=== PATIENT | male | born 1975 | race Caucasian/White ===

== ENCOUNTER 2017-06-04 03:51 | Emergency (ER) | payer SELFPAY ==
[2017-06-04 04:12] VITALS: BMI 30.4
--- NOTE | 2017-06-04 04:26 | PDOC ---
History of Present Illness <Palm,Luz - Last Filed: 06/04/17 05:50> - General History Source: Patient, Friend Exam Limitations: Intoxication - History of Present Illness Initial Comments: 06/04/17 04:15 This is a 42 yo male with unremarkable PMH who presents with closed head injury sustained early this morning at approximately 3 am. The patient reportedly consumed the equivalent of about 10-12 shots of alcohol, tripped on a sidewalk, and fell backwards from standing, landing on the back of his head. The patient himself cannot remember this happening and does not know whether or not he lost consciousness. His friend (who did not personally witness the event) states that the patient was reportedly acting "delirious" after the fall, per his friends who actually witnessed this. <BrandinGalilea - Last Filed: 06/04/17 07:01> - General Chief Complaint: Wound Stated Complaint: FALL -INJURY TO BACK OF HEAD Time Seen by Provider: 06/04/17 04:00 Past History <Luz Palm - Last Filed: 06/04/17 05:50> - Psycho/Social/Smoking Cessation Hx Suicidal Ideation: No Smoking History: Unknown if ever smoked Information on smoking cessation initiated: No Hx Alcohol Use: No Drug/Substance Use Hx: No <Ghotra,Galilea - Last Filed: 06/04/17 07:01> - Past Medical History Allergies/Adverse Reactions: Allergies Allergy/AdvReac Type Severity Reaction Status Date / Time No Known Allergies Allergy Verified 06/04/17 04:02 Home Medications: Ambulatory Orders NK [No Known Home Medication] 06/04/17 Review of Systems - Review of Systems Able to Perform ROS?: Yes Is the patient limited Maori proficient: Yes Constitutional: No: Chills, Fever, Unexplained wgt Loss HEENTM: Yes: Other (scalp abrasion and bruising). No: Blurred Vision, Recent change in vision, Double Vision, Ear Pain, Nose Bleeding Respiratory: No: Cough, Shortness of Breath Cardiac (ROS): No: Chest Pain, Palpitations ABD/GI: No: Constipated, Diarrhea, Nausea, Vomiting : No: Burning, Dysuria Musculoskeletal: No: Back Pain, Neck Pain Integumentary: No: Bruising, Rash Neurological: No: Numbness, Tingling, Weakness, Dizziness Endocrine: No: Unexplained Weight Gain, Unexplained Weight Loss <Galilea Ghotra - Last Filed: 06/04/17 07:01> *Physical Exam - Vital Signs Last Vital Signs Temp Pulse Resp BP Pulse Ox 98.5 F 74 16 118/84 95 06/04/17 04:02 06/04/17 04:02 06/04/17 04:02 06/04/17 04:02 06/04/17 04:02 <Luz Palm - Last Filed: 06/04/17 05:50> - Vital Signs Last Vital Signs Temp Pulse Resp BP Pulse Ox 98.5 F 74 16 118/84 95 06/04/17 04:02 06/04/17 04:02 06/04/17 04:02 06/04/17 04:02 06/04/17 04:02 - Physical Exam General Appearance: Yes: Nourished, Appropriately Dressed, Alcohol on Breath, Intoxicated, Other (alert and oriented but appears tired, follows commands). No : Apparent Distress HEENT: positive: EOMI, CANDICE, Normal ENT Inspection, Normal Voice, Hearing Grossly Normal, Other (4x3 cm scalp hematoma just inferolateral to occipital protuberance with overlying 3x3cm abrasion, no mastoid tenderness to percussion , no dawn sign, no raccoon eyes). negative: Scleral Icterus (R), Scleral Icterus (L), Nasal Congestion Neck: positive: Trachea midline, Supple. negative: Tender, Rigid Respiratory/Chest: positive: Lungs Clear, Normal Breath Sounds. negative: Respiratory Distress, Crackles, Rhonchi, Stridor, Wheezing Cardiovascular: positive: Regular Rhythm, Regular Rate. negative: Murmur Gastrointestinal/Abdominal: positive: Normal Bowel Sounds, Soft. negative: Tender, Organomegaly, Pulsatile Mass, Guarding Musculoskeletal: positive: Normal Inspection. negative: Decreased Range of Motion, Vertebral Tenderness Extremity: positive: Normal Capillary Refill, Normal Inspection, Normal Range of Motion. negative: Tender, Cyanosis Integumentary: positive: Normal Color, Dry, Warm. negative: Erythema, Rash, Bruising Neurologic: positive: psychiatric nurse II-XII NML intact, Fully Oriented, Alert, Normal Mood/ Affect, Normal Response, Motor Strength 5/5, Finger to Nose (normal), Confused ( mild) <Galilea Ghotra - Last Filed: 06/04/17 07:01> ED Treatment Course - LABORATORY CBC & Chemistry Diagram: 06/04/17 04:20 06/04/17 04:20 - ADDITIONAL ORDERS Additional order review: Laboratory Results 06/04/17 06/04/17 06/04/17 04:20 04:20 04:20 INR 0.90 PTT (Actin FS) Sodium 139 Potassium 3.4 L Chloride 101 Carbon Dioxide 28 Anion Gap 10 BUN 18 Creatinine 1.1 Creat Clearance w eGFR > 60 Random Glucose 101 Calcium 8.8 Total Bilirubin 0.4 AST 29 ALT 30 Alkaline Phosphatase 60 Total Protein 7.1 Albumin 4.2 Alcohol, Quantitative 166.2 H* 06/04/17 04:20 INR PTT (Actin FS) 29.3 Sodium Potassium Chloride Carbon Dioxide Anion Gap BUN Creatinine Creat Clearance w eGFR Random Glucose Calcium Total Bilirubin AST ALT Alkaline Phosphatase Total Protein Albumin Alcohol, Quantitative 06/04/17 04:20 RBC 4.31 MCV 91.6 MCHC 33.6 RDW 13.3 MPV 8.1 Neutrophils % 63.9 Lymphocytes % 24.6 Monocytes % 9.4 Eosinophils % 1.6 Basophils % 0.5 - RADIOLOGY Radiology Studies Ordered: Category Date Time Status CERVICAL SPINE CT W/O CONTR [CT] Stat CT Scan 06/04/17 04:[address] WITHOUT CONTRAST [CT] Stat CT Scan 06/04/17 04:08 Ordered CHEST X-RAY PORTABLE* [RAD] Stat Radiology 06/04/17 05:26 Ordered <Luz Palm - Last Filed: 06/04/17 05:50> - LABORATORY CBC & Chemistry Diagram: 06/04/17 04:20 06/04/17 04:20 - RADIOLOGY Radiology Studies Ordered: 06/04/17 06:39 CT Cervical Spine WO Contrast: Suspected occult skull fracture involving the left temporal bone. Interpreted by Dr. Louis. CT Head WO Contrast: Suspected nondepressed skull fracture is suggested by intracranial air in the left posterior fossa. Minimal left mastoid effusion suggests a fracture involving the temporal bone. No intracranial hemorrhage. Interpreted by Dr. Louis. <Galilea Ghotra - Last Filed: 06/04/17 07:01> Medical Decision Making - Medical Decision Making 06/04/17 06:43 42 yo male presents after GLF onto the back of his head (onto concrete) in the setting of alcohol intoxication. Head/C spine CT ordered d/t patient's alcohol intoxication, inability to remember the event, and inability to say whether or not he lost consciousness. CT findings consistent with nondepressed skull fracture involving the temporal bone, no ICH. The patient is given IV ceftriaxone, and transferred to [facility] for neurosurgical services. <Galilea Ghotra - Last Filed: 06/04/17 07:01> *DC/Admit/Observation/Transfer - Transfer to Acute Care Facility Receiving Facility: [facility] <Luz Palm - Last Filed: 06/04/17 05:50> - Transfer to Acute Care Facility Receiving Facility: [facility] Accepting Physician:: Dr. Barrios - Attestations Physician Attestion: 06/04/17 06:58 I, Dr. Galilea Ghotra, attest that this document has been prepared under my direction and personally reviewed by me in its entirety. I further attest, that it accurately reflects all work, treatment, procedures and medical decision -making performed by me. <Galilea Ghotra - Last Filed: 06/04/17 07:01> Diagnosis at time of Disposition: Skull fracture Qualifiers: Encounter type: initial encounter Skull bone/location: other skull bone Fracture type: closed Laterality: left Qualified Code(s): S02.82XA - Fracture of other specified skull and facial bones, left side, initial encounter for closed fracture - Discharge Dispostion Disposition: TRANSFER ACUTE CARE/OTHER HOSP Condition at time of disposition: Guarded
[2017-06-04 04:32] LABS: BASOPHIL 0.5 % (0-2.0); EOSINOPHIL 1.6 % (0-4.5); MCH 30.8 pg (25.7-33.7); MCHC 33.6 g/dl (32.0-35.9); MEAN CELL VOLUME 91.6 fl (80-96); MEAN PLT VOLUME 8.1 fl (7.5-11.1); NEUTROPHILS 63.9 % (42.8-82.8); PLATELET COUNT 178 K/MM3 (134-434); RDW 13.3 % (11.9-15.9); WHITE BLOOD COUNT 6.7 K/mm3 (4.0-10.0)
[2017-06-04 04:45] LABS: INR 0.9 (0.82-1.09); PROTHROMBIN TIME (PATIENT) 9.9 SEC (9.98-11.88)
[2017-06-04 05:06] LABS: ALBUMIN 4.2 g/dl (3.4-5.0); ALK PHOS 60 U/L (45-117); ANION GAP 10 (8-16); BILIRUBIN,TOTAL 0.4 mg/dL (0.2-1.0); CALCIUM 8.8 mg/dL (8.5-10.1); CO2 28 mmol/L (21-32); CREATININE 1.1 mg/dL (0.7-1.3); GLUCOSE,RANDOM 101 mg/dL (74-106); SGOT/AST 29 U/L (15-37); SGPT/ALT 30 U/L (12-78); TOT PROT 7.1 g/dl (6.4-8.2)
[2017-06-04 06:22] VITALS: BP 111/60; PULSE 79; TEMP 98
[2017-06-04] MEDS ORDERED: CEFTRIAXONE 1 GM in DEXTROSE 5%-WATER - 50 ML IVPB ONE (06:29)
--- NOTE | 2017-06-04 06:29 | PDOC ---
Attending Attestation - Resident Resident Name: Galilea Ghotra - HPI HPI: 06/04/17 06:23 pt fell onto sidewalk wasted with alcohol intox. Unknown if any drug consumption , though people at the same [facility] were abusing GHB and Mollys (they are at our ER also) Pt has no recollection of how he fell. - Physicial Exam PE: 06/04/17 06:25 Drunk. Alcohol on breath. Pt is arousable and alert. Pt HEENT reveals Some blood and bulging behind the left ear. CT shows skull fracture at the occiput and at the left temporal area. Pt has no c spine fracture, as per radiology reading Patient Name: Wilmar Benítez THIS IS A PRELIMINARYREPORT FROM [facility] EXAM: CT brain without contrast IMAGES: [id number] INDICATION: Status post fall DATE OF SERVICE: 2017-06-04 04:33:05.0 COMPARISON: none FINDINGS: The ventricular system is midline and nondilated. The sulcal pattern is normal for the patient' s age. There is no bleed, mass, extra-axial fluid collection or mass effect. There is extra-axial air in the left aspect of the posterior fossa which would strongly suggest a skull fracture though no fracture is identified. There is minimal left mastoid effusion and fracture involving the left temporal bone is suspected The visualized paranasal sinuses and right mastoid air cells are clear. IMPRESSION: Suspected nondepressed skull fracture is suggested by intracranial air in the left posterior fossa. Minimal left mastoid effusion suggests a fracture involving the temporal bone. No intracranial hemorrhage. THIS DOCUMENT HAS BEEN ELECT Patient Name: Wilmar Benítez THIS IS A PRELIMINARYREPORT FROM [facility] EXAM: CT cervical spine without contrast IMAGES: [id number] INDICATION: Status post fall DATE OF SERVICE: 2017-06-04 04:30:06.0 COMPARISON: none FINDINGS: Left posterior fossa extra-axial air and small left mastoid effusion strongly suggests an occult fracture which may be involving the temporal bone. There is no spinal fracture, subluxation, prevertebral soft tissue swelling there are mild degenerative changes. The lung apices are clear. IMPRESSION: No cervical fracture. Suspected occult skull fracture involving the left temporal bone THIS DOCUMENT HAS BEEN ELECTRONICALLY SIGNED - Medical Decision Making 06/04/17 06:29 Pt will go to [facility] to Dr. Chris Barrios Neurosurg. Dr. [place] in [place] at [facility] [place] also. I am transferring, as we have no neurosurgery here.
== END 2017-06-04 06:37 | disposition short-term general hospital (02) ==
LOC: JER 03:51
DX: S02.19XA Other fracture of base of skull, initial encounter for closed fracture (principal); S02.0XXA Fracture of vault of skull, initial encounter for closed fracture; W18.39XA Other fall on same level, initial encounter; Y93.89 Activity, other specified; Y92.480 Sidewalk as the place of occurrence of the external cause; F10.10 Alcohol abuse, uncomplicated; F15.10 Other stimulant abuse, uncomplicated
CPT/HCPCS: 36415; 70450-TC; 72125-TC; 80053; 80307; 85025; 85610; 85730; 99282-25